=== PATIENT | female | born 1970 ===

== ENCOUNTER 2020-06-22 07:00 | Day surgery (SDC) | payer OTHER | END 2020-06-22 12:45 | disposition home or self-care (01) | LOC: AMB-ENDOS 07:00 | PROVIDERS: ATTEND Colon & Rectal Surgery | DX: D12.3 Benign neoplasm of transverse colon (principal); Z12.11 Encounter for screening for malignant neoplasm of colon ==

== ENCOUNTER → 2020-06-22 07:24 | Outpatient (CLI) | payer OTHER | END | disposition home or self-care (01) | LOC: LAB 07:24 | DX: Z20.828 Contact with and (suspected) exposure to other viral communicable diseases (principal); R05 Cough; Z03.818 Encounter for observation for suspected exposure to other biological agents ruled out ==